=== PATIENT | female | born 1995 ===

== ENCOUNTER 2019-02-27 21:22 | Emergency (ER) | payer SELFPAY ==
[2019-02-27 21:38] VITALS: TEMP 97.4
[2019-02-27] MEDS ORDERED: CLONIDINE 0.1 MG TAB PO ONE (22:05)
[2019-02-27] MEDS ORDERED: ONDANSETRON HCL 4 MG/2 ML SOL IV ONE (22:05)
[2019-02-27] MEDS ORDERED: KETOROLAC TROMETHAMINE 30 MG/ML SOL IV ONE (22:05)
[2019-02-27 22:10] LABS: BASOPHILS % (AUTO) 1 % (0-3); EOSINOPHILS % (AUTO) 0 % (0-9); HEMATOCRIT 42 % (35-47); HEMOGLOBIN 13.9 gm/dl (12.0-15.5); MEAN CORPUSCULAR HEMOGLOBIN 28.8 pg (27.0-32.0); MEAN CORPUSCULAR HGB CONC 33.6 gm/dl (32.0-36.0); MEAN CORPUSCULAR VOLUME 86 fL (81-99); MONOCYTES % (AUTO) 4.4 % (0-12); NEUTROPHILS % (AUTO) 71.9 % (37-80)
[2019-02-27] MEDS ORDERED: KETOROLAC TROMETHAMINE 30 MG/ML SOL ONE (22:12)
[2019-02-27] MEDS ORDERED: ONDANSETRON HCL 4 MG/2 ML SOL ONE (22:13)
[2019-02-27] MEDS ORDERED: SODIUM CHLORIDE 0.9% 1000ML 1,000 ML IV ONE (22:28)
[2019-02-27 22:30] LABS: APPEARANCE,URINE Clear; BILIRUBIN,URINE NEGATIVE (NEGATIVE); COLOR,URINE Light yellow; GLUCOSE, URINE (UA) NEGATIVE (NEGATIVE); KETONES,URINE NEGATIVE (NEGATIVE); LEUKOCYTE ESTERASE ,URINE NEGATIVE (NEGATIVE); NITRATE,URINE NEGATIVE (NEGATIVE); OCCULT BLOOD,URINE TRACE INTACT (NEG-TRACE); PH,URINE 6.5; UROBILINOGEN,URINE 0.2 (0.2-1.0 EU)
[2019-02-27 22:40] LABS: ALBUMIN 3.6 gm/dl (3.4-5.0); ALKALINE PHOSPHATASE 72 IU/L (46-116); ALT 65 IU/L (14-63); AST 52 IU/L (15-37); BILIRUBIN,TOTAL 0.3 mg/dl (0.2-1.0); BLOOD UREA NITROGEN 10 mg/dl (7-18); CALCIUM 9.4 mg/dl (8.5-10.1); CARBON DIOXIDE 25.5 mEq/L (21-32); CHLORIDE 105 mMol/L (98-107); CREATININE 0.85 mg/dl (0.60-1.00); GLUCOSE 85 mg/dl (74-106); POTASSIUM 4.8 mMol/L (3.5-5.1); SODIUM 141 mMol/L (136-145); TOTAL PROTEIN 9.3 gm/dl (6.4-8.2)
[2019-02-27 22:45] LABS: ACETAMINOPHEN < 2 ug/ml (10-30); ALCOHOL 0.015 gm/dl (0.000-0.08)
[2019-02-27 22:49] LABS: AMPHETAMINES NEGATIVE (NEGATIVE); BARBITUATES NEGATIVE (NEGATIVE); BENZODIAZEPINES NEGATIVE (NEGATIVE); CANNABINOL(THC) POSITIVE (NEGATIVE); COCAINE(COC) NEGATIVE (NEGATIVE); METHADONE NEGATIVE (NEGATIVE); METHAMPHETAMINES NEGATIVE (NEGATIVE); OPIATES(OPI) POSITIVE (NEGATIVE); OXYCODONE(OXY) NEGATIVE (NEGATIVE); PROPOXYPHENE(PPX) NEGATIVE (NEGATIVE); TRICYCLIC ANTIDEPRESSANTS NEGATIVE (NEGATIVE)
[2019-02-27] MEDS ORDERED: DIPHENHYDRAMINE 25 MG CAP PO ONE (23:00)
[2019-02-27 23:04] LABS: BACTERIA NEGATIVE (< 1+); CRYSTALS NEGATIVE (0-3 AVE/HPF); EPITHELIAL CELLS 0-2 (SQUAMOUS); RBC,URINE 0-1 (0-3AV/HPF); WBC,URINE 0-1 (0-5AV/HPF)
[2019-02-27] MEDS ORDERED: DIPHENHYDRAMINE 25 MG CAP ONE (23:06)
[2019-02-27] MEDS ORDERED: CYCLOBENZAPRINE 10 MG TAB PO ONE (23:22)
[2019-02-27] MEDS ORDERED: CYCLOBENZAPRINE 10 MG TAB ONE (23:38)
[2019-02-28 03:02] VITALS: O2SAT 100
[2019-02-28 03:25] VITALS: BP 108/80; PULSE 74; RESP 16
== END 2019-02-28 02:15 | disposition other institution (70) | DRG 897 ==
LOC: ED 21:22
DX: F11.23 Opioid dependence with withdrawal (principal); F12.90 Cannabis use, unspecified, uncomplicated
CPT/HCPCS: 80053; 80305; 80307; 81001; 84443; 84703; 85025; 96365; 96374; 96375; 99283; 99285; J1885; J2405; A9270-GY